=== PATIENT | male | born 1970 | race African-American/Black ===

== ENCOUNTER 2021-09-01 14:21 | Inpatient (IN) | payer MEDICAID ==
[~2021-09-01] VITALS: Ht 193 cm; Wt 114.9 kg
[2021-09-01 15:38] LABS: BASOPHILS % 1.2 % (0.0-2.0); EOSINOPHILS % 3.7 % (0.0-5.0); HEMATOCRIT. 33.1 % (42.0-52.0); HEMOGLOBIN. 10.5 g/dL (14.0-18.0); LYMPHOCYTES % 17.3 % (20.0-50.0); MEAN CORPUSCULAR HEMOGLOBIN 25.9 pg (28.0-32.0); MEAN CORPUSCULAR VOLUME 81.5 fL (80.0-94.0); MEAN PLATELET VOLUME 7.5 fl (7.4-10.4); MONOCYTES % 9.4 % (2.0-8.0); NEUTROPHILS % 68.4 % (40.0-76.0); PLATELET 375 x1000/uL (130-400); RED BLOOD CELL COUNT 4.07 mill/uL (4.7-6.1); RED CELL DISTRIBUTION WIDTH 20.3 % (11.6-14.6)
[2021-09-01 15:44] LABS: CHLORIDE 110 mEq/L (98-107)
[2021-09-01 15:50] LABS: ETHANOL BLOOD < 10 mg/dL
[2021-09-01 17:10] LABS: *AMPHETAMINES SCREEN URINE NEGATIVE (NEGATIVE); *BARBITURATES SCREEN URINE NEGATIVE (NEGATIVE); *BENZODIAZEPINES SCREEN URINE NEGATIVE (NEGATIVE); *COCAINE SCREEN URINE NEGATIVE (NEGATIVE); CANNABINOID URINE SCREEN NEGATIVE (NEGATIVE); METHADONE URINE SCREEN NEGATIVE (NEGATIVE)
[2021-09-01 17:11] LABS: OPIATES URINE SCREEN NEGATIVE (NEGATIVE); PHENCYCLIDINE URINE SCREEN NEGATIVE (NEGATIVE)
[2021-09-01] MEDS ORDERED: MAGNESIUM/ALUMINUM HYDROXIDE/SIMETHICONE 30ML UDC PO PRN (20:45)
[2021-09-01] MEDS ORDERED: HYDRALAZINE 20MG/ML VIAL IV PRN (20:45)
[2021-09-01] MEDS ORDERED: ACETAMINOPHEN 325MG TABLET PO PRN ×2 (20:45)
[2021-09-01] MEDS ORDERED: DEXTROSE 50% WATER 50ML SYRINGE IV PRN (20:45)
[2021-09-01] MEDS ORDERED: CLONIDINE 0.1MG TABLET PO PRN (20:45)
[2021-09-01] MEDS ORDERED: ONDANSETRON HCL 4MG/2ML INJ IV PRN (20:45)
[2021-09-01] MEDS ORDERED: DIPHENHYDRAMINE 50MG/ML VIAL IV PRN (20:45)
[2021-09-01] MEDS ORDERED: ZOLPIDEM TARTRATE 5MG TABLET PO PRN (21:00)
[2021-09-01] MEDS ORDERED: ENOXAPARIN 120MG/0.8ML SYR SUBCUT NR (21:00)
[2021-09-01] MEDS: INSULIN LISPRO 100 UNITS/ML SUBCUT SCH (21:00)
[2021-09-01] MEDS: BLOOD SUGAR DIAGNOSTIC STRIP TEST SCH (21:39)
[2021-09-01] MEDS: SODIUM CHLORIDE 0.9% INJ 3ML FLUSH IVF SCH (23:18)
[2021-09-01] MEDS ORDERED: IOHEXOL-350 100 ML BOTTLE ONE (23:41)
[2021-09-02] MEDS: SODIUM CHLORIDE 0.9% INJ 3ML FLUSH IVF SCH (05:45)
[2021-09-02] MEDS ORDERED: PHENYTOIN SODIUM EXTENDED 100MG CAPSULE PO SCH (06:00)
[2021-09-02] MEDS: BLOOD SUGAR DIAGNOSTIC STRIP TEST SCH ×3 (06:30→13:09)
[2021-09-02] MEDS: INSULIN LISPRO 100 UNITS/ML SUBCUT SCH ×3 (07:00→12:40)
[2021-09-02] MEDS ORDERED: ENOXAPARIN 120MG/0.8ML SYR SUBCUT SCH (09:00)
[2021-09-02] MEDS ORDERED: LEVETIRACETAM 500MG TABLET PO SCH (09:00)
[2021-09-02 09:25] LABS: BASOPHILS % 1.4 % (0.0-2.0); EOSINOPHILS % 5.8 % (0.0-5.0); HEMATOCRIT. 36.2 % (42.0-52.0); HEMOGLOBIN. 11.7 g/dL (14.0-18.0); LYMPHOCYTES % 26.2 % (20.0-50.0); MEAN PLATELET VOLUME 7.4 fl (7.4-10.4); MONOCYTES % 7.8 % (2.0-8.0); NEUTROPHILS % 58.8 % (40.0-76.0); PLATELET 440 x1000/uL (130-400); RED BLOOD CELL COUNT 4.52 mill/uL (4.7-6.1); RED CELL DISTRIBUTION WIDTH 20.3 % (11.6-14.6)
[2021-09-02 09:35] LABS: CHLORIDE 106 mEq/L (98-107)
[2021-09-02 09:38] LABS: PROTHROMBIN TIME 11.1 sec (9.6-11.0)
[2021-09-02 10:27] VITALS: BP 160/87
[2021-09-02 15:51] VITALS: BP 156/84
== END 2021-09-02 16:25 | disposition home or self-care (01) | DRG 48 ==
LOC: ER 14:21 → MICUSO 20:21 → EDBEDREQTM 20:45 → EDBEDREQ 20:45 → 8WST 09-02 12:02
PROVIDERS: ADMIT Internal Medicine; ATTEND Internal Medicine
DX: G90.8 Other disorders of autonomic nervous system (principal); I82.432 Acute embolism and thrombosis of left popliteal vein; G40.909 Epilepsy, unspecified, not intractable, without status epilepticus; E11.9 Type 2 diabetes mellitus without complications; E66.9 Obesity, unspecified; Z86.73 Personal history of transient ischemic attack (TIA), and cerebral infarction without residual deficits; Z79.4 Long term (current) use of insulin; Z68.30 Body mass index [BMI] 30.0-30.9, adult
CPT/HCPCS: 36415; 71045; 78580; 80048; 80053; 80185; 80305; 80320; 82962; 83880; 84484; 85025; 85379; 93005; 93970; 99291; J0360; J1650; Q9967; G0480